=== PATIENT | female | born 1990 | race Hispanic/Latino ===

== ENCOUNTER 2017-05-04 17:15 | Emergency (ER) | payer BC ==
[2017-05-04] MEDS ORDERED: CATAPRES PO ONE (22:00)
--- NOTE | 2017-05-04 22:08 | Emergency Department Report ---
ED General Adult HPI - General Chief complaint: Headache Stated complaint: DIZZINESS, HEADACHE Time Seen by Provider: 05/04/17 21:59 Source: patient Mode of arrival: Ambulatory Limitations: No Limitations - History of Present Illness Initial comments: This is a 26-year-old female nontoxic, well nourished in appearance, no acute signs of distress presents to the ED for hypertension. Patient stated originally in school she started to have a headache this morning and went to a school nurse which she was prescribed "2 motrins" which symptoms now resolved. Patient stated she went to a urgent care and was diagnosed with hypertension. Patient stated she came into the ED for her hypertension. Patient denies any headache now. Patient stated headache has resolved after receiving Motrin. Patient denies any chest pain, blurry vision, nausea, vomiting, headache, stiff neck, fever, chills, back pain, or abdominal pain. Patient denies any allergies or PMH. MD Complaint: High blood pressure -: This morning Severity scale (0 -10): 0 Improves with: none Worsens with: none Associated Symptoms: denies other symptoms. denies: confusion, chest pain, cough, diaphoresis, fever/chills, headaches, loss of appetite, malaise, nausea/ vomiting, rash, seizure, shortness of breath, syncope, weakness Treatments Prior to Arrival: none - Related Data Previous Rx's Medication Instructions Recorded Last Taken Type Amlodipine Besylate [Norvasc] 5 mg PO DAILY #30 tablet 05/04/17 Unknown Rx Allergies Allergy/AdvReac Type Severity Reaction Status Date / Time No Known Allergies Allergy Unverified 05/04/17 18:03 ED Review of Systems ROS: Stated complaint: DIZZINESS, HEADACHE Other details as noted in HPI Constitutional: denies: chills, fever Eyes: denies: eye pain, eye discharge, vision change ENT: denies: ear pain, throat pain Respiratory: denies: cough, shortness of breath, wheezing Cardiovascular: denies: chest pain, palpitations Endocrine: no symptoms reported Gastrointestinal: denies: abdominal pain, nausea, diarrhea Genitourinary: denies: urgency, dysuria, discharge Musculoskeletal: denies: back pain, joint swelling, arthralgia Skin: denies: rash, lesions Neurological: denies: headache, weakness, paresthesias Psychiatric: denies: anxiety, depression Hematological/Lymphatic: denies: easy bleeding, easy bruising ED Past Medical Hx - Past Medical History Previous Medical History?: No - Surgical History Past Surgical History?: No - Social History Smoking Status: Never Smoker Substance Use Type: None - Medications Home Medications: Home Medications Medication Instructions Recorded Confirmed Last Taken Type Amlodipine Besylate [Norvasc] 5 mg PO DAILY #30 tablet 05/04/17 Unknown Rx ED Physical Exam - General Limitations: No Limitations General appearance: alert, in no apparent distress - Head Head exam: Present: atraumatic, normocephalic - Eye Eye exam: Present: normal appearance, PERRL, EOMI Pupils: Present: normal accommodation - ENT ENT exam: Present: normal exam, normal orophraynx, mucous membranes moist, TM's normal bilaterally, normal external ear exam - Neck Neck exam: Present: normal inspection, full ROM. Absent: tenderness, meningismus, lymphadenopathy, thyromegaly - Respiratory Respiratory exam: Present: normal lung sounds bilaterally. Absent: respiratory distress, wheezes, rales, rhonchi, stridor, chest wall tenderness, accessory muscle use, decreased breath sounds, prolonged expiratory - Cardiovascular Cardiovascular Exam: Present: regular rate, normal rhythm, normal heart sounds. Absent: bradycardia, tachycardia, irregular rhythm, systolic murmur, diastolic murmur, rubs, gallop - GI/Abdominal GI/Abdominal exam: Present: soft, normal bowel sounds. Absent: distended, tenderness, guarding, rebound, rigid, diminished bowel sounds - Rectal Rectal exam: Present: deferred - Extremities Exam Extremities exam: Present: normal inspection, full ROM, normal capillary refill. Absent: tenderness, pedal edema, joint swelling, calf tenderness - Back Exam Back exam: Present: normal inspection, full ROM. Absent: tenderness, CVA tenderness (R), CVA tenderness (L), muscle spasm, paraspinal tenderness, vertebral tenderness, rash noted - Neurological Exam Neurological exam: Present: alert, oriented X3, CN II-XII intact, normal gait, reflexes normal - Expanded Neurological Exam Expanded Patient oriented to: Present: person, place, time Cranial nerves: EOM's Intact: Normal, Gag Reflex: Normal, Tongue Deviation: Normal, Nystagmus: Normal, Facial Sensation: Normal, Facial Palsy with Forehead Movement: Normal, Facial Palsy without Forehead Movement: Normal Cerebellar function: Finger to Nose: Normal, Heel to [place]: Normal, Romberg: Normal Upper motor neuron: Fredy Neglect: Normal, Pronator Drift: Normal, Babinski Sign : Normal, Sensory Extinction: Normal Sensory exam: Upper Extremity Light Touch: Normal, Upper Extremity Pin Prick: Normal, Upper Extremity Temperature: Normal, UE 2 Point Discrimination: Normal, Lower Extremity Light Touch: Normal, Lower Extremity Pin Prick: Normal, Lower Extremity Temperature: Normal, LE 2 Point Discrimination: Normal Motor strength exam: RUE: 5, LUE: 5, RLE: 5, LLE: 5 DTR: bicep (R): 2+, bicep (L): 2+, tricep (R): 2+, tricep (L): 2+, knee (R): 2+ , knee (L): 2+, ankle (R): 2+, ankle (L): 2+ Best Eye Response ([place]): (4) open spontaneously Best Motor Response (Emily): (6) obeys commands Best Verbal Response (Emily): (5) oriented Emily Total: 15 - Psychiatric Psychiatric exam: Present: normal affect, normal mood - Skin Skin exam: Present: warm, dry, intact, normal color. Absent: rash ED Course Vital Signs 05/04/17 05/04/17 17:58 22:24 Temperature 98.0 F Pulse Rate 87 89 Respiratory 16 Rate Blood Pressure 157/120 154/106 O2 Sat by Pulse 100 Oximetry - Reevaluation(s) Reevaluation #1: 05/04/17 22:09 Patient is speaking in full sentences with no signs of distress noted. ED Medical Decision Making - Medical Decision Making This is a 26-year-old female that presents with hypertension. Patient is stable and was examined by me. Patient currently denies any neurological symptoms. Patient stated she just came to the ED for blood pressure evaluation. Patient received o.1mg of Catapres in the ED. Blood pressure decreased within normal limits. I will start patient on Norvasc daily and I instructed patient to follow -up with primary care doctor within 24 hours. Patient was also instructed to keep a daily dairy of blood pressure and present it to primary care doctor. Patient was instructed to return to the ED if symptoms of blurry vision, headache, visual changes, lethargy, dizziness, uncontrolled blood pressure, or any worsening of symptoms to return to the ED as soon as possible. At time of discharge, the patient does not seem toxic or ill in appearance. No acute signs of distress noted. Patient agrees to discharge treatment plan of care. No further questions noted by the patient. Critical care attestation.: If time is entered above; I have spent that time in minutes in the direct care of this critically ill patient, excluding procedure time. ED Disposition Clinical Impression: Hypertension Qualifiers: Hypertension type: unspecified Qualified Code(s): I10 - Essential (primary) hypertension Disposition: TO HOME OR SELFCARE Is pt being admited?: No Does the pt Need Aspirin: No Condition: Stable Instructions: Amlodipine (By mouth), Hypertension (ED) Additional Instructions: Follow-up with a primary care doctor in 24 hours. Return to the ED if symptoms of blurry vision, headache, visual changes, lethargy, dizziness, uncontrolled blood pressure, or any worsening of symptoms to return to the ED as soon as possible. Keep a daily dairy of your blood pressure and present it to your primary care doctor. Prescriptions: Amlodipine Besylate [Norvasc] 5 mg PO DAILY #30 tablet Referrals: [facility] [Outside] - 3-5 Days [facility] [Outside] - 3-5 Days ENMA MCKEON MD [Primary Care Provider] - 24 Hours PRIMARY CAREMD [Referring] - 24 Hours MARE JONES MD [Staff Physician] - 24 Hours Forms: Work/School Release Form(ED)
[2017-05-04 22:46] VITALS: BP 142/94
== END 2017-05-04 22:50 | disposition home or self-care (01) ==
LOC: ED 17:15
DX: I10 Essential (primary) hypertension (principal)
CPT/HCPCS: 99282